=== PATIENT | male | born 1940 | race Caucasian/White ===

== ENCOUNTER 2017-12-01 15:40 | Inpatient (IN) | payer OTHER ==
[2017-12-01] MEDS ORDERED: HumuLIN R SUBCUT PRN (15:59)
[2017-12-01] MEDS ORDERED: NS 100 ML IV 100 ML IV ONE (16:15)
[2017-12-01 16:53] VITALS: BMI 22.8
[2017-12-01] MEDS: NS 1000 ML 1,000 ML IV SCH (17:03)
[2017-12-01] MEDS ORDERED: HEPARIN SODIUM INJ 5000 UNITS IVP ONE (17:34)
--- NOTE | 2017-12-01 17:35 | CT ---
CTA chest Indication: Shortness of breath Comparison: None Technique: CT images of the chest were obtained with contrast. Automatic exposure control was utilize d. MIP images provided. Findings: The upper abdomen is grossly unremarkable. No aggressive osseous lesions identified. Normal heart size, without pericardial thickening or pericardial effusion. There is severe [place] cor onary atherosclerosis with changes of previous median sternotomy and CABG. Aside from scattered ather osclerotic plaques, the thoracic aorta is grossly unremarkable for technique. No suspicious intrathor acic lymph nodes identified. Multiple bilateral segmental and subsegmental pulmonary arterial filling defects are present. Of note, there is small saddle embolus of the distal left main pulmonary artery extending into the left upper lobe branches. Mild right ventricular enlargement is noted. There is moderate upper lobe predominant emphysema. Patchy bilateral lower lobe opacities are noted. There is partial opacification of some of the left lower lobe bronchioles, suggesting bronchitis. No pleural effusion or pneumothorax. Impression: 1. Multiple bilateral pulmonary thromboemboli with mild right ventricular enlargement, suggestive for right heart strain. 2. Patchy bilateral lower lobe opacities, likely atelectasis or pneumonitis. Findings of left lower l obe bronchitis. 3. Emphysema. Reported By:
[2017-12-01] MEDS: HEPARIN SODIUM IN D5W 25,000 UNITS/500 ML BAG IV PRN (17:40)
[2017-12-01] MEDS: LEVAQUIN PREMIX IV 500 MG 500 MG/100 ML BAG IV SCH (18:25)
[2017-12-01] MEDS ORDERED: DUONEB 0.5 MG/3 MG NEB SCH (21:00)
[2017-12-01] MEDS: DUONEB 0.5 MG/3 MG NEB SCH (21:05)
[2017-12-02] MEDS: NS 1000 ML 1,000 ML IV SCH (06:08)
--- NOTE | 2017-12-02 06:27 | RAD ---
HISTORY: Shortness of breath Study: Chest AP portable Comparison: 12/01/2017 plain film and CTA chest Findings: The patient is status post median sternotomy and CABG. The heart is within normal limits in size. The [place] are normal. The lungs are mildly hyperinflated. No acute alveolar infiltrates are present. No p leural effusions are identified. The bony thorax is unremarkable. IMPRESSION: Lungs hyperinflated but free of acute alveolar infiltrates Reported By:
[2017-12-02 07:03] LABS: ALANINE AMINOTRANSFERASE 49 Units/L (12-78); ALBUMIN 2.2 g/dL (3.4-5.0); ALKALINE PHOSPHATASE 83 Units/L (46-116); ASPARTATE AMINO TRANSFERASE 28 Units/L (15-37); BASOPHILS % (AUTO) 0.6 % (0.2-1.0); BLOOD UREA NITROGEN 13 mg/dL (7-18); CALCIUM 8.3 mg/dL (8.5-10.1); CARBON DIOXIDE 22.6 mmol/L (21-32); CHLORIDE 107 mmol/L (98-107); COR CA(FOR HYPOALB) 9.7 mg/dL (8.5-10.1); COR NA(FOR HYPERGLY) 140 mmol/L (136-145); CREATININE 1.23 mg/dL (0.70-1.30); EOSINOPHILS # (AUTO) 0.3 x10^3/uL (0.0-0.2); EOSINOPHILS % (AUTO) 4.2 % (0.9-2.9); HEMATOCRIT 28.7 % (42.0-54.0); HEMOGLOBIN 9.9 g/dL (13.5-18.0); LYMPHOCYTES # (AUTO) 2.4 X10^3/uL (1.3-2.9); LYMPHOCYTES % (AUTO) 37.7 % (21.0-51.0); MEAN CORPUSCULAR HEMOGLOBIN 30.2 pg (27.0-34.0); MEAN CORPUSCULAR HGB CONC 34.4 g/dL (33.0-35.0); MEAN CORPUSCULAR VOLUME 87.8 fL (80.0-100.0); MEAN PLATELET VOLUME 7.6 fL (7.4-11.0); MONOCYTES # (AUTO) 0.8 x10^3/uL (0.3-0.8); MONOCYTES % (AUTO) 11.9 % (0.0-13.0); NEUTROPHILS % (AUTO) 45.6 % (42.0-75.0); PLATELET COUNT 196 X10^3/uL (150.0-450.0); RED BLOOD COUNT 3.27 X10^6/uL (4.7-6.0); RED CELL DISTRIBUTION WIDTH 14.9 % (11.6-16.5); SODIUM 139 mmol/L (136-145); TOTAL PROTEIN 6.4 g/dL (6.4-8.2); WHITE BLOOD COUNT 6.5 X10^3/uL (3.6-10.0); eGFR BLACK RACES > 60 (>60); eGFR NON BLACK RACES > 60 (>60)
[2017-12-02] MEDS: LEVAQUIN PREMIX IV 500 MG 500 MG/100 ML BAG IV SCH (08:00)
[2017-12-02] MEDS: DUONEB 0.5 MG/3 MG NEB SCH ×4 (08:45→20:07)
[2017-12-02] MEDS ORDERED: ALBUTEROL SULFATE INH PRN (09:54)
[2017-12-02] MEDS ORDERED: PATIENT'S HOME MEDICATION (Fluticasone-Salmeterol 250/50 1 PUFF) INH SCH (10:00)
[2017-12-02] MEDS: TOPROL XL PO SCH (10:43)
[2017-12-02] MEDS: ZANTAC PO SCH (10:43)
[2017-12-02] MEDS: PROTONIX TAB 40 MG PO SCH (10:43)
[2017-12-02] MEDS: FORTAZ or TAZICEF INJ 1 GM in NS 100 ML IV + SPIKE MINIBAG* 100 ML IV SCH ×3 (10:43→21:39)
[2017-12-02] MEDS: LINAGLIPTIN 5 MG PO SCH (10:44)
[2017-12-02] MEDS: ALBUMIN HUMAN 25%- 100ML 100 ML IV SCH (10:44)
[2017-12-02] MEDS ORDERED: VERSED ONE (13:08)
[2017-12-02] MEDS ORDERED: DIPRIVAN VIAL ONE (13:08)
[2017-12-02] MEDS ORDERED: NEOSTIGMINE INJ ONE (13:08)
[2017-12-02] MEDS ORDERED: XYLOCAINE 1% and EPINEPHRINE 1:100,000 ONE (13:45)
[2017-12-02] MEDS ORDERED: MARCAINE 0.25% INJ ONE (13:45)
[2017-12-02] MEDS ORDERED: LR 1000 ML IV 1,000 ML IV ONE (13:55)
[2017-12-02] MEDS ORDERED: ANCEF 1 GM IV PREMIX* 1 GM/50 ML BAG IV ONE (13:55)
[2017-12-02] MEDS ORDERED: FENTANYL INJ 100 mcg ONE (14:38)
[2017-12-02] MEDS ORDERED: XYLOCAINE 1 % (PLAIN) ONE (15:03)
--- NOTE | 2017-12-02 15:36 | DR.UPDATE ---
H&P Update History and Physical Update: History and Physical reviewed and patient examined. Changes noted: NO Yes with the following:
--- NOTE | 2017-12-02 16:28 | OR.GENERIC ---
Post-Op Note Generic - Post-Op Note Operative Report: Endoscopy Report December 02, 2017 Pre-Operative Diagnosis: 1. Bilateral pulmonary emboli. 2. Left femoral deep vein thrombosis. Post-Operative Diagnosis: 1. Bilateral pulmonary emboli. 2. Left femoral deep vein thrombosis. Procedures: 1. Ultrasound guided cannulation of right internal jugular vein. 2. Venography. 3. Insertion of cordis inferior vena cava filter. Surgeon: Kenton Arboleda MD. Property Utilization Manager: Michael Peguero CRNA. Specimen(s): None. Estimated blood loss: None. Complications: None. Summary: The patient is a 77 year old male who presented with bilateral pulmonary emboli and left lower extremity deep vein thrombosis. The patient was offered placement of inferior vena cava filter. The risk and benefits of the procedure including difficulty with anesthesia, bleeding, infection, filter migration, filter fracture, cava thrombosis, as well as further pulmonary emboli despite filter placement were discussed with the patient. The patient understood these risks and requested the procedure. On December 02, 2017, the patient was brought to the operative theatre. A time out was performed verifying the patient and the procedure. The patient received Ancef for preoperative antibiosis. After satisfactory induction of monitored anesthesia care, the right chest and neck were prepped with Chloraprep and draped in the usual fashion. The skin overlying the right internal jugular vein was anesthetized using local. The right internal jugular was cannulated under ultrasound guidance and a wire passed into the inferior vena cava. The wire was advanced under fluoroscopic guidance. A skin iveth was made at the cannulation site. A sheath and dilator were advanced over the wire to the level of L5. A venogram was obtained that demonstrated renal veins at approximately L2. A Cordis Trapease was deployed with the tip in the middle of the L3 body. The catheter and deployment system were removed. Pressure was held at the cannulation site for 1 minute. The skin edges were reapproximated using an inverted 4-0 Monocryl suture. Steri-strips were placed. A dressing was placed. The patient was awakened and taken to the recovery room in stable condition. There were no complications.
--- NOTE | 2017-12-02 16:32 | RAD ---
HISTORY: Postop IVC filter. Study: Portable chest. Comparison: Chest x-ray dated same day. Findings: The trachea is midline. The cardiac silhouette is unremarkable. Chronic emphysematous changes. Posts urgical changes status post CABG. Bibasilar scarring versus atelectasis. No obvious focal consolidati on, pleural effusion, or pneumothorax. The bony thorax is unremarkable. IMPRESSION: No acute cardiopulmonary disease. Reported By:
[2017-12-02] MEDS ORDERED: HEPARIN SODIUM INJ 5000 UNITS ONE (17:38)
[2017-12-02] MEDS ORDERED: HEPARIN SODIUM INJ 5000 UNITS IVP ONE (17:40)
--- NOTE | 2017-12-02 18:24 | VAS ---
HISTORY: Patient has multiple pulmonary emboli and left lower extremity DVT. Study: Right lower extremity ultrasound. Comparison: Left lower extremity ultrasound dated December 01, 2017. TECHNIQUE: Multiple marshall scale and color flow Doppler images of the deep venous system were obtained of the right lower extremity. FINDINGS: The deep venous system of the right lower extremity was evaluated from the level of the common femora l vein through the popliteal vein. Normal color flow and augmentation can be observed. In addition, normal compression is seen throughout the deep venous system. IMPRESSION: Negative for DVT. Reported By:
[2017-12-02] MEDS: PULMICORT NEB TX 0.5 MG NEB SCH (20:07)
[2017-12-03] MEDS: HEPARIN SODIUM IN D5W 25,000 UNITS/500 ML BAG IV PRN (00:23)
[2017-12-03] MEDS: NS 1000 ML 1,000 ML IV SCH ×2 (03:33→11:40)
[2017-12-03] MEDS: FORTAZ or TAZICEF INJ 1 GM in NS 100 ML IV + SPIKE MINIBAG* 100 ML IV SCH ×3 (06:04→22:00)
[2017-12-03 06:11] LABS: BASOPHILS # (AUTO) 0.1 X10^3/uL (0.0-0.1); BASOPHILS % (AUTO) 0.8 % (0.2-1.0); EOSINOPHILS # (AUTO) 0.3 x10^3/uL (0.0-0.2); EOSINOPHILS % (AUTO) 4.3 % (0.9-2.9); HEMATOCRIT 27.2 % (42.0-54.0); HEMOGLOBIN 9.4 g/dL (13.5-18.0); LYMPHOCYTES # (AUTO) 2.9 X10^3/uL (1.3-2.9); LYMPHOCYTES % (AUTO) 39.9 % (21.0-51.0); MEAN CORPUSCULAR HEMOGLOBIN 30.3 pg (27.0-34.0); MEAN CORPUSCULAR HGB CONC 34.6 g/dL (33.0-35.0); MEAN CORPUSCULAR VOLUME 87.5 fL (80.0-100.0); MEAN PLATELET VOLUME 7.9 fL (7.4-11.0); MONOCYTES # (AUTO) 0.7 x10^3/uL (0.3-0.8); MONOCYTES % (AUTO) 10.2 % (0.0-13.0); NEUTROPHILS # (AUTO) 3.3 x10^3/uL (2.2-4.8); NEUTROPHILS % (AUTO) 44.8 % (42.0-75.0); PLATELET COUNT 168 X10^3/uL (150.0-450.0); RED BLOOD COUNT 3.11 X10^6/uL (4.7-6.0); RED CELL DISTRIBUTION WIDTH 15.3 % (11.6-16.5); WHITE BLOOD COUNT 7.3 X10^3/uL (3.6-10.0)
[2017-12-03 06:30] LABS: BLOOD UREA NITROGEN 13 mg/dL (7-18); CALCIUM 8.2 mg/dL (8.5-10.1); CARBON DIOXIDE 23.1 mmol/L (21-32); CHLORIDE 107 mmol/L (98-107); COR NA(FOR HYPERGLY) 141 mmol/L (136-145); CREATININE 1.34 mg/dL (0.70-1.30); SODIUM 140 mmol/L (136-145); eGFR BLACK RACES > 60 (>60); eGFR NON BLACK RACES 55 (>60)
[2017-12-03] MEDS: LINAGLIPTIN 5 MG PO SCH (08:19)
[2017-12-03] MEDS: ALBUMIN HUMAN 25%- 100ML 100 ML IV SCH (08:40)
[2017-12-03] MEDS: ZANTAC PO SCH (08:41)
[2017-12-03] MEDS: LEVAQUIN PREMIX IV 500 MG 500 MG/100 ML BAG IV SCH (08:41)
[2017-12-03] MEDS: TOPROL XL PO SCH (08:41)
[2017-12-03] MEDS: PROTONIX TAB 40 MG PO SCH (08:41)
[2017-12-03] MEDS: DUONEB 0.5 MG/3 MG NEB SCH ×4 (09:06→19:59)
[2017-12-03] MEDS: PULMICORT NEB TX 0.5 MG NEB SCH ×2 (09:07→19:59)
[2017-12-03] MEDS ORDERED: NEO-SYNEPHRINE INJ ONE (09:11)
[2017-12-03] MEDS ORDERED: DIPRIVAN VIAL ONE (09:11)
[2017-12-03] MEDS ORDERED: VERSED ONE (09:11)
[2017-12-03] MEDS: ELIQUIS PO SCH ×2 (11:30→20:58)
[2017-12-03 12:10] LABS: ALANINE AMINOTRANSFERASE 39 Units/L (12-78); ALBUMIN 2.4 g/dL (3.4-5.0); ALKALINE PHOSPHATASE 79 Units/L (46-116); ASPARTATE AMINO TRANSFERASE 28 Units/L (15-37); COR CA(FOR HYPOALB) 9.5 mg/dL (8.5-10.1); TOTAL PROTEIN 6.1 g/dL (6.4-8.2)
--- NOTE | 2017-12-03 22:02 | PCM.PROG ---
Progress Note - Progress Note for Day of Date: 12/02/17 - Subjective Subjective: WAS ADMITTED YESTERDAY FOR A LEFT LOWER EXTREMITY DVT. ON ADMISSION, A CHEST CT WAS OBTAINED AND REVEALED MULTIPLE BILATERAL PULMONARY THROMBOEMBOLI, LEFT LOWER LOBE BRONCHITIS, AND EMPHYSEMA. HE REMAINS IN THE INTENSIVE CARE UNIT ON A HEPARIN DRIP. TODAY, HE IS ALERT AND ORIENTED, LYING IN BED ON MORNING ROUNDS. HE IS NOTED WITH COMPLAINTS OF SHORTNESS OF BREATH AND SWELLING TO THE LEFT LOWER EXTREMITY. ON EXAMINATION, HEART IS REGULAR IN RATE AND RHYTHM. INSPIRATORY AND EXPIRATORY WHEEZING NOTED TO AUSCULTATION. ABDOMEN IS ROUND, SOFT, AND NON-TENDER WITH NORMAL BOWEL SOUNDS NOTED IN ALL QUADRANTS. LEFT LOWER EXTREMITY CONTINUES WITH ERYTHEMA FROM THE FOOT TO THE GROIN. 2+ PITTING EDEMA CONTINUES TO LEFT LEG AND FOOT. THERE IS NORMAL RANGE OF MOTION NOTED TO EXTREMITIES. HIS VITALS THIS MORNING ARE 97.0-59-16-99%-113/ 59. LABS WERE OBTAINED. ABNORMAL LAB VALUES INCLUDE THE FOLLOWING: RBC 3.27, HGB 9.9, HCT 28.7, GLUCOSE 140, CALCIUM 8.3, ALBUMIN 2.2 . TODAY, WE WILL CONTINUE THE HEPARIN DRIP AND START FORTAZ 1GM IV Q8H, TPN, AND ALBUMIN. WE WILL CONSULT WITH FOR PLACEMENT OF IVC FILTER. OTHERWISE, WE WILL OBTAIN AM LABS AND CONTINUE TO MONITOR PATIENT. - Past Medical Family Social History Past Med/Fam/Surg Hx: No changes since H&P Allergies: Allergies No Known Drug Allergies [NKDA] Allergy (Verified 12/01/17 16:13) - Review of Systems ROS: No change since H&P - Vital Signs and I&O's Vital Signs: Temperature 98.9 F Pulse Rate [Apical] 97 Pulse Rate [Left Radial] 96 Pulse Rate 77 Respiratory Rate 12 Blood Pressure [Right Arm] 112/57 Blood Pressure 121/63 O2 Sat by Pulse Oximetry 99 Intake and Output: Intake & Output 12/01/17 12/02/17 12/03/17 12/04/17 11:59 11:59 11:59 11:59 Intake Total 1703 2660 840 Output Total 1400 210 Balance 303 2450 840 - Physical Exam Oriented: Normal Eyes: Normal Ear: Normal Nose: Normal Throat: Normal Respiratory: Generalized, Wheezes Cardiovascular: Normal : Normal Auscultation: Bowel Sounds: Normal Palpation: Normal Tenderness: Normal Skin: Red, Tender, Hot (LEFT LEG, FOOT) Musculoskeletal: Normal Psychiatric: Normal Mood Description: Calm Affect: Normal Speech Pattern: Clear, Appropriate - Laboratory and Diagnostics Result Diagrams: 12/04/17 05:05 12/04/17 05:05 Labs: Laboratory WBC 7.3 X10^3/uL (3.6-10.0) 12/03/17 05:35 RBC 3.11 X10^6/uL (4.7-6.0) L 12/03/17 05:35 Hgb 9.4 g/dL (13.5-18.0) L 12/03/17 05:35 Hct 27.2 % (42.0-54.0) L 12/03/17 05:35 MCV 87.5 fL (80.0-100.0) 12/03/17 05:35 MCH 30.3 pg (27.0-34.0) 12/03/17 05:35 MCHC 34.6 g/dL (33.0-35.0) 12/03/17 05:35 RDW 15.3 % (11.6-16.5) 12/03/17 05:35 Plt Count 168 X10^3/uL (150.0-450.0) 12/03/17 05:35 MPV 7.9 fL (7.4-11.0) 12/03/17 05:35 Neut % (Auto) 44.8 % (42.0-75.0) 12/03/17 05:35 Lymph % (Auto) 39.9 % (21.0-51.0) 12/03/17 05:35 [place] % (Auto) 10.2 % (0.0-13.0) 12/03/17 05:35 Eos % (Auto) 4.3 % (0.9-2.9) H 12/03/17 05:35 Baso % (Auto) 0.8 % (0.2-1.0) 12/03/17 05:35 Neut # (Auto) 3.3 x10^3/uL (2.2-4.8) 12/03/17 05:35 Lymph # (Auto) 2.9 X10^3/uL (1.3-2.9) 12/03/17 05:35 [place] # (Auto) 0.7 x10^3/uL (0.3-0.8) 12/03/17 05:35 Eos # (Auto) 0.3 x10^3/uL (0.0-0.2) H 12/03/17 05:35 Baso # (Auto) 0.1 X10^3/uL (0.0-0.1) 12/03/17 05:35 Absolute Nucleated RBC 0.0 /100WBC 12/03/17 05:35 APTT 42.5 SECONDS (22.9-36.5) H 12/03/17 13:00 PTT Comment - 12/03/17 13:00 Sodium 140 mmol/L (136-145) 12/03/17 05:35 Corrected Sodium 141 mmol/L (136-145) 12/03/17 05:35 Potassium 3.7 mmol/L (3.5-5.1) 12/03/17 05:35 Chloride 107 mmol/L (98-107) 12/03/17 05:35 Carbon Dioxide 23.1 mmol/L (21-32) 12/03/17 05:35 BUN 13 mg/dL (7-18) 12/03/17 05:35 Creatinine 1.34 mg/dL (0.70-1.30) H 12/03/17 05:35 Est GFR (MDRD) Af Amer > 60 (>60) 12/03/17 05:35 Est GFR (MDRD) Non-Af 55 (>60) L 12/03/17 05:35 Glucose 143 mg/dL (65-99) H 12/03/17 05:35 POC Glucose (mg/dL) 128 mg/dL (65-99) H 12/03/17 20:46 Calcium 8.2 mg/dL (8.5-10.1) L 12/03/17 05:35 Corrected Calcium 9.5 mg/dL (8.5-10.1) 12/03/17 05:35 Total Bilirubin 0.20 mg/dL (0.2-1.0) 12/03/17 05:35 AST 28 Units/L (15-37) 12/03/17 05:35 ALT 39 Units/L (12-78) 12/03/17 05:35 Alkaline Phosphatase 79 Units/L (46-116) 12/03/17 05:35 Total Protein 6.1 g/dL (6.4-8.2) L 12/03/17 05:35 Albumin 2.4 g/dL (3.4-5.0) L 12/03/17 05:35 Globulin 3.7 g/dL (2.5-4.5) 12/03/17 05:35 Albumin/Globulin Ratio 0.6 Ratio (1.1-2.1) L 12/03/17 05:35 - Plan (1) Leg DVT (deep venous thromboembolism), acute Status: Acute Qualifiers: Laterality: left Qualified Code(s): I82.402 - Acute embolism and thrombosis of unspecified deep veins of left lower extremity (2) Pulmonary thromboembolism Status: Acute (3) Bronchitis Status: Acute
[2017-12-04] MEDS: FORTAZ or TAZICEF INJ 1 GM in NS 100 ML IV + SPIKE MINIBAG* 100 ML IV SCH (05:30)
[2017-12-04 05:52] LABS: BASOPHILS % (AUTO) 0.5 % (0.2-1.0); EOSINOPHILS # (AUTO) 0.3 x10^3/uL (0.0-0.2); EOSINOPHILS % (AUTO) 3.1 % (0.9-2.9); HEMATOCRIT 29.3 % (42.0-54.0); HEMOGLOBIN 10.1 g/dL (13.5-18.0); LYMPHOCYTES # (AUTO) 2.3 X10^3/uL (1.3-2.9); LYMPHOCYTES % (AUTO) 25.8 % (21.0-51.0); MEAN CORPUSCULAR HEMOGLOBIN 30.4 pg (27.0-34.0); MEAN CORPUSCULAR HGB CONC 34.4 g/dL (33.0-35.0); MEAN CORPUSCULAR VOLUME 88.5 fL (80.0-100.0); MEAN PLATELET VOLUME 7.7 fL (7.4-11.0); MONOCYTES # (AUTO) 0.9 x10^3/uL (0.3-0.8); MONOCYTES % (AUTO) 10.2 % (0.0-13.0); NEUTROPHILS # (AUTO) 5.3 x10^3/uL (2.2-4.8); NEUTROPHILS % (AUTO) 60.4 % (42.0-75.0); PLATELET COUNT 178 X10^3/uL (150.0-450.0); RED BLOOD COUNT 3.31 X10^6/uL (4.7-6.0); RED CELL DISTRIBUTION WIDTH 15.7 % (11.6-16.5); WHITE BLOOD COUNT 8.8 X10^3/uL (3.6-10.0)
[2017-12-04 06:04] LABS: ALANINE AMINOTRANSFERASE 35 Units/L (12-78); ALBUMIN 2.6 g/dL (3.4-5.0); ALKALINE PHOSPHATASE 82 Units/L (46-116); ASPARTATE AMINO TRANSFERASE 24 Units/L (15-37); BLOOD UREA NITROGEN 13 mg/dL (7-18); CALCIUM 8.3 mg/dL (8.5-10.1); CARBON DIOXIDE 22.9 mmol/L (21-32); CHLORIDE 109 mmol/L (98-107); COR CA(FOR HYPOALB) 9.4 mg/dL (8.5-10.1); COR NA(FOR HYPERGLY) 143 mmol/L (136-145); CREATININE 1.12 mg/dL (0.70-1.30); SODIUM 142 mmol/L (136-145); TOTAL PROTEIN 6.4 g/dL (6.4-8.2); eGFR BLACK RACES > 60 (>60); eGFR NON BLACK RACES > 60 (>60)
--- NOTE | 2017-12-04 06:47 | RAD ---
HISTORY: Shortness of breath Study: Chest AP portable Comparison: 12/03/2017 Findings: The patient is status post median sternotomy and CABG. The heart is within normal limits in size. The lungs are well inflated and free of acute alveolar infiltrates. No pleural effusions are identified. The bony thorax is unremarkable. IMPRESSION: Lungs remain clear Reported By:
[2017-12-04] MEDS: ALBUMIN HUMAN 25%- 100ML 100 ML IV SCH (08:27)
[2017-12-04] MEDS: PROTONIX TAB 40 MG PO SCH (08:28)
[2017-12-04] MEDS: LEVAQUIN PREMIX IV 500 MG 500 MG/100 ML BAG IV SCH (08:28)
[2017-12-04] MEDS: TOPROL XL PO SCH (08:28)
[2017-12-04] MEDS: ZANTAC PO SCH (08:28)
[2017-12-04] MEDS: ELIQUIS PO SCH (08:28)
[2017-12-04] MEDS: LINAGLIPTIN 5 MG PO SCH (08:32)
[2017-12-04] MEDS: DUONEB 0.5 MG/3 MG NEB SCH (09:50)
[2017-12-04] MEDS: PULMICORT NEB TX 0.5 MG NEB SCH (09:50)
[2017-12-04] MEDS: NS 1000 ML 1,000 ML IV SCH (10:15)
[2017-12-04 13:03] VITALS: BP 107/57
--- NOTE | 2017-12-04 13:07 | PCM.PROG ---
Progress Note - Progress Note for Day of Date: 12/03/17 - Subjective Subjective: IS BEING TREATED FOR LEFT LEG DVT, MULTIPLE PULMONARY EMBOLI, AND BRONCHITIS. HE IS STATUS POST PLACEMENT OF IVC FILTER YESTERDAY. HE REMAINS IN THE INTENSIVE CARE UNIT ON A HEPARIN DRIP. TODAY, HE IS ALERT AND ORIENTED, LYING IN BED ON MORNING ROUNDS. HE CONTINUES WITH COMPLAINTS OF SHORTNESS OF BREATH AND SWELLING TO THE LEFT LOWER EXTREMITY, HOWEVER, IMPROVEMENT SINCE YESTERDAY IS NOTED. ON EXAMINATION, HEART IS REGULAR IN RATE AND RHYTHM. EXPIRATORY WHEEZING NOTED. ABDOMEN IS ROUND, SOFT, AND NON-TENDER WITH NORMAL BOWEL SOUNDS NOTED IN ALL QUADRANTS. LEFT LOWER EXTREMITY CONTINUES WITH ERYTHEMA FROM THE FOOT TO THE GROIN. 1+ PITTING EDEMA CONTINUES TO LEFT LEG AND FOOT. THERE IS NORMAL RANGE OF MOTION NOTED TO EXTREMITIES. HIS VITALS THIS MORNING ARE 97.7-65-15-100%-133/63. LABS WERE OBTAINED. HE REMAINS HEMODYNAMICALLY STABLET TODAY. TODAY, WE WILL DISCONTINUE THE HEPARIN DRIP AND START ELIQUIS 5MG PO BID. OTHERWISE, WE WILL CONTINUE WITH CURRENT PLAN OF CARE. WE PLAN TO OBTAIN AM LABS AND CONTINUE TO MONITOR PATIENT. - Past Medical Family Social History Past Med/Fam/Surg Hx: No changes since H&P Allergies: Allergies No Known Drug Allergies [NKDA] Allergy (Verified 12/01/17 16:13) - Review of Systems ROS: No change since H&P - Vital Signs and I&O's Vital Signs: Temperature 98.6 F Pulse Rate [Apical] 77 Pulse Rate [Left Radial] 96 Pulse Rate 77 Respiratory Rate 17 Blood Pressure [Right Arm] 107/57 Blood Pressure 121/63 O2 Sat by Pulse Oximetry 99 Intake and Output: Intake & Output 12/02/17 12/03/17 12/04/17 12/05/17 11:59 11:59 11:59 11:59 Intake Total 1703 2660 3452 Output Total 1400 210 300 Balance 303 2450 3152 - Physical Exam Oriented: Normal Eyes: Normal Ear: Normal Nose: Normal Throat: Normal Respiratory: Generalized, Wheezes Cardiovascular: Normal : Normal Auscultation: Bowel Sounds: Normal Palpation: Normal Tenderness: Normal Skin: Red, Tender, Hot (LEFT LEG, FOOT) Musculoskeletal: Normal Psychiatric: Normal Mood Description: Calm Affect: Normal Speech Pattern: Clear, Appropriate - Laboratory and Diagnostics Result Diagrams: 12/04/17 05:05 12/04/17 05:05 Labs: Laboratory WBC 8.8 X10^3/uL (3.6-10.0) 12/04/17 05:05 RBC 3.31 X10^6/uL (4.7-6.0) L 12/04/17 05:05 Hgb 10.1 g/dL (13.5-18.0) L 12/04/17 05:05 Hct 29.3 % (42.0-54.0) L 12/04/17 05:05 MCV 88.5 fL (80.0-100.0) 12/04/17 05:05 MCH 30.4 pg (27.0-34.0) 12/04/17 05:05 MCHC 34.4 g/dL (33.0-35.0) 12/04/17 05:05 RDW 15.7 % (11.6-16.5) 12/04/17 05:05 Plt Count 178 X10^3/uL (150.0-450.0) 12/04/17 05:05 MPV 7.7 fL (7.4-11.0) 12/04/17 05:05 Neut % (Auto) 60.4 % (42.0-75.0) 12/04/17 05:05 Lymph % (Auto) 25.8 % (21.0-51.0) 12/04/17 05:05 [place] % (Auto) 10.2 % (0.0-13.0) 12/04/17 05:05 Eos % (Auto) 3.1 % (0.9-2.9) H 12/04/17 05:05 Baso % (Auto) 0.5 % (0.2-1.0) 12/04/17 05:05 Neut # (Auto) 5.3 x10^3/uL (2.2-4.8) H 12/04/17 05:05 Lymph # (Auto) 2.3 X10^3/uL (1.3-2.9) 12/04/17 05:05 [place] # (Auto) 0.9 x10^3/uL (0.3-0.8) H 12/04/17 05:05 Eos # (Auto) 0.3 x10^3/uL (0.0-0.2) H 12/04/17 05:05 Baso # (Auto) 0.0 X10^3/uL (0.0-0.1) 12/04/17 05:05 Absolute Nucleated RBC 0.0 /100WBC 12/04/17 05:05 APTT 34.2 SECONDS (22.9-36.5) 12/04/17 05:05 PTT Comment - 12/04/17 05:05 Sodium 142 mmol/L (136-145) 12/04/17 05:05 Corrected Sodium 143 mmol/L (136-145) 12/04/17 05:05 Potassium 3.8 mmol/L (3.5-5.1) 12/04/17 05:05 Chloride 109 mmol/L (98-107) H 12/04/17 05:05 Carbon Dioxide 22.9 mmol/L (21-32) 12/04/17 05:05 BUN 13 mg/dL (7-18) 12/04/17 05:05 Creatinine 1.12 mg/dL (0.70-1.30) 12/04/17 05:05 Est GFR (MDRD) Af Amer > 60 (>60) 12/04/17 05:05 Est GFR (MDRD) Non-Af > 60 (>60) 12/04/17 05:05 Glucose 123 mg/dL (65-99) H 12/04/17 05:05 POC Glucose (mg/dL) 124 mg/dL (65-99) H 12/04/17 11:14 Calcium 8.3 mg/dL (8.5-10.1) L 12/04/17 05:05 Corrected Calcium 9.4 mg/dL (8.5-10.1) 12/04/17 05:05 Total Bilirubin 0.30 mg/dL (0.2-1.0) 12/04/17 05:05 AST 24 Units/L (15-37) 12/04/17 05:05 ALT 35 Units/L (12-78) 12/04/17 05:05 Alkaline Phosphatase 82 Units/L (46-116) 12/04/17 05:05 Total Protein 6.4 g/dL (6.4-8.2) 12/04/17 05:05 Albumin 2.6 g/dL (3.4-5.0) L 12/04/17 05:05 Globulin 3.8 g/dL (2.5-4.5) 12/04/17 05:05 Albumin/Globulin Ratio 0.7 Ratio (1.1-2.1) L 12/04/17 05:05 - Plan (1) Leg DVT (deep venous thromboembolism), acute Status: Acute Qualifiers: Laterality: left Qualified Code(s): I82.402 - Acute embolism and thrombosis of unspecified deep veins of left lower extremity Plan: ELIQUIS 5MG PO BID, STATUS POST IVC FILTER, CONTINUE TO MONITOR (2) Pulmonary thromboembolism Status: Acute Plan: ELIQUIS 5MG PO BID, STATUS POST IVC FILTER, CONTINUE TO MONITOR (3) Bronchitis Status: Acute Plan: CONTINUE LEVAQUIN AND FORTAZ, CONTINUE RESPIRATORY TREATMENTS, MONITOR
== END 2017-12-04 13:30 | disposition home or self-care (01) | DRG 299 ==
LOC: ICU 15:40
PROVIDERS: ADMIT Internal Medicine; ATTEND Internal Medicine
PROC: B51 Imaging, Veins, Fluoroscopy (ICD-10-PCS; 2017-12-02)
PROC: 057 Upper Veins, Dilation (ICD-10-PCS; 2017-12-02)
PROC: 06H03DZ Insertion of Intraluminal Device into Inferior Vena Cava, Percutaneous Approach (ICD-10-PCS; principal; 2017-12-02 14:15)
DX: I82.412 Acute embolism and thrombosis of left femoral vein (principal); I26.99 Other pulmonary embolism without acute cor pulmonale; I87.2 Venous insufficiency (chronic) (peripheral); Z87.01 Personal history of pneumonia (recurrent); R06.89 Other abnormalities of breathing; C66.1 Malignant neoplasm of right ureter; J40 Bronchitis, not specified as acute or chronic; R26.81 Unsteadiness on feet; J43.8 Other emphysema
CPT/HCPCS: 36415; 71045; 71275; 76000; 80053; 85025; 85730; 93971; 94640; 99100; A4216; A4222; P9047; S0020; J0690; J0713; J1644; J1956; J2001; J2250; J2370; J2710; J3010; J3490; J7120; J7620; J7626

== ENCOUNTER → 2017-12-01 | Outpatient (CLI) | payer OTHER ==
[2017-12-01 14:11] LABS: ALANINE AMINOTRANSFERASE 70 Units/L (12-78); ALKALINE PHOSPHATASE 109 Units/L (46-116); ASPARTATE AMINO TRANSFERASE 41 Units/L (15-37); BLOOD UREA NITROGEN 15 mg/dL (7-18); CALCIUM 9.3 mg/dL (8.5-10.1); CARBON DIOXIDE 24.7 mmol/L (21-32); CHLORIDE 103 mmol/L (98-107); COR CA(FOR HYPOALB) 10.1 mg/dL (8.5-10.1); COR NA(FOR HYPERGLY) 140 mmol/L (136-145); CREATININE 1.21 mg/dL (0.70-1.30); SODIUM 139 mmol/L (136-145); TOTAL PROTEIN 8.4 g/dL (6.4-8.2); eGFR BLACK RACES > 60 (>60); eGFR NON BLACK RACES > 60 (>60)
[2017-12-01 14:22] LABS: B-TYPE NATRIURETIC PEPTIDE 144 pg/mL (0-79)
[2017-12-01 14:25] LABS: BASOPHILS # (AUTO) 0.1 X10^3/uL (0.0-0.1); BASOPHILS % (AUTO) 0.6 % (0.2-1.0); EOSINOPHILS # (AUTO) 0.2 x10^3/uL (0.0-0.2); EOSINOPHILS % (AUTO) 1.7 % (0.9-2.9); HEMATOCRIT 35.8 % (42.0-54.0); HEMOGLOBIN 12.3 g/dL (13.5-18.0); LYMPHOCYTES # (AUTO) 3.7 X10^3/uL (1.3-2.9); LYMPHOCYTES % (AUTO) 37.3 % (21.0-51.0); MEAN CORPUSCULAR HEMOGLOBIN 30.5 pg (27.0-34.0); MEAN CORPUSCULAR HGB CONC 34.5 g/dL (33.0-35.0); MEAN CORPUSCULAR VOLUME 88.6 fL (80.0-100.0); MEAN PLATELET VOLUME 7.7 fL (7.4-11.0); MONOCYTES % (AUTO) 9.8 % (0.0-13.0); NEUTROPHILS % (AUTO) 50.6 % (42.0-75.0); PLATELET COUNT 282 X10^3/uL (150.0-450.0); RED BLOOD COUNT 4.04 X10^6/uL (4.7-6.0); RED CELL DISTRIBUTION WIDTH 15.2 % (11.6-16.5); WHITE BLOOD COUNT 9.9 X10^3/uL (3.6-10.0)
[2017-12-01 14:39] LABS: BILIRUBIN,URINE NEGATIVE (NEGATIVE); BLOOD/HEMOGLOBIN,URINE 1+ (NEGATIVE); GLUCOSE, URINE NEGATIVE (NEGATIVE); KETONES,URINE NEGATIVE (NEGATIVE); LEUKOCYTE ESTERASE ,URINE NEGATIVE (NEGATIVE); NITRITES,URINE NEGATIVE (NEGATIVE); PROTEIN,URINE 1+ (NEGATIVE); UROBILINOGEN,URINE NORMAL (NORMAL)
--- NOTE | 2017-12-01 14:44 | VAS ---
HISTORY: Extremity pain, swelling, and edema Study: Left lower extremity Doppler venous ultrasound. TECHNIQUE: Multiple marshall scale and color flow Doppler images of the deep venous system were obtained of the left lower extremity. FINDINGS: The deep venous system of the left lower extremity evaluated from the level of the common femoral vei n through the popliteal vein. There is evidence for an occlusive deep venous thrombosis which extends to the left common femoral vein down into the left popliteal vein. IMPRESSION: Positive examination for DVT. Occlusive left lower extremity DVT observed which extends from the left common femoral vein down into the left popliteal vein on this exam. Reported By:
[2017-12-01 14:45] LABS: APPEARANCE,URINE SLIGHTLY HAZY (CLEAR); BACTERIA,URINE TRACE /HPF (NEGATIVE); COLOR,URINE YELLOW (YELLOW); MUCUS,URINE FEW /HPF (NEGATIVE); RBC,URINE 0-2 /HPF (NONE SEEN); SQUAMOUS EPITHELIAL CELL,UR FEW /HPF (NEGATIVE)
[2017-12-01 14:57] LABS: ERYTHROCYTE SEDIMENTATION RATE 74 MM/HOUR (0-15)
[2017-12-01 15:38] LABS: MYCOPLASMA PNEUMONIAE IGM AB NEGATIVE (NEGATIVE)
--- NOTE | 2017-12-01 18:24 | RAD ---
History: Chest pain and dyspnea. Exam: PA and lateral views of the chest. Comparison: Chest CT examination dated 12/01/2017. Findings: The trachea is midline. The cardiomediastinal silhouette is within normal limits. There is no evidence for CHF or pulmonary edema. Bibasilar airspace disease/atelectasis remains. The chest is hyperinflated with an increased AP dimension of the chest, diaphragmatic flattening, and central inte rstitial changes which would be compatible with changes of obstructive airways disease. Status post s ternotomy. No acute bony abnormalities are seen. Impression: 1. No acute changes seen. Bibasilar airspace disease/atelectasis remains. 2. Findings of obstructive airways disease. Status post sternotomy. Reported By:
== END | disposition home or self-care (01) | DRG 300 ==
LOC: LAB 13:30
PROVIDERS: ATTEND Psychiatry & Neurology Neurology
DX: I87.2 Venous insufficiency (chronic) (peripheral) (principal); R06.89 Other abnormalities of breathing; R06.2 Wheezing; I82.412 Acute embolism and thrombosis of left femoral vein; I82.432 Acute embolism and thrombosis of left popliteal vein
CPT/HCPCS: 36415; 71046; 80053; 81001; 83880; 85025; 85610; 85652; 86738; 93971